=== PATIENT | male | born 1980 ===

== ENCOUNTER 2020-01-03 20:30 | Emergency (ER) | payer OTHER, SELFPAY ==
[2020-01-03] MEDS ORDERED: Adacel (T-DAP) 0.5 ML SYRINGE ONE (21:11)
[2020-01-03] MEDS ORDERED: Acetaminophen/Codeine 30-300mg Tablet ONE (21:42)
--- NOTE | 2020-01-03 23:46 | RAD ---
RIGHT ANKLE 3 VIEWS: Date: 01/03/2020 There is some mild soft tissue swelling present, but no fracture indicated. The articular surfaces of the ankle joint appear normal. The calcaneus appears intact. IMPRESSION: No acute traumatic findings. POS: HOME
--- NOTE | 2020-01-03 23:47 | RAD ---
LEFT ANKLE 3 VIEWS: Date: 01/03/2020 No fracture seen. The joint appears intact, as do the surrounding bones and calcaneus. IMPRESSION: No acute bony findings. POS: HOME
--- NOTE | 2020-01-03 23:48 | RAD ---
RIGHT KNEE 4 VIEWS: Date: 01/03/2020 No fracture or joint effusion seen. There is no dislocation. The joint space and articular surfaces s eem normal. 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 IMPRESSION: 1. No acute findings. 2. Bone infarct of the distal femur. POS: HOME
== END 2020-01-03 21:55 | disposition home or self-care (01) ==
LOC: BURERS 20:30
DX: S90.01XA Contusion of right ankle, initial encounter (principal); S80.01XA Contusion of right knee, initial encounter; S90.32XA Contusion of left foot, initial encounter; S50.311A Abrasion of right elbow, initial encounter; Z23 Encounter for immunization; W13.2XXA Fall from, out of or through roof, initial encounter
CPT/HCPCS: 90471; 90715